=== PATIENT | female | born 1945 | race Caucasian/White ===

== ENCOUNTER 2023-01-23 05:37 | Inpatient (IN) | payer MEDICARE, BC ==
[2023-01-23 06:05] LABS: #Basophils 0.1 thou/uL (0.0-0.2); #Eosinphils 0.2 thou/uL (0.0-0.7); #Monocytes 0.6 thou/uL (0.11-0.59); #Neutrophils 3.7 thou/uL (1.40-6.50); %Eosinophils 3.1 % (0.0-10.0); %Lymphocytes 25.9 % (21.0-51.0); %Monocytes 9.9 % (0.0-10.0); %Neutrophils 59.5 % (42.0-75.0); Hematocrit 45.4 % (36.0-47.0); Hemoglobin 15.2 g/dL (12.0-16.0); Mean Corpuscular HGB CONC 33.5 g/dL (32.0-36.0); Mean Corpuscular Hemoglobin 29.3 pg (27.0-31.0); Mean Corpuscular Volume 87.5 fl (78.0-98.0); Mean Platelet Volume 10.9 fL (7.4-10.4); Platelet Count 199 10x3/uL (130-400); RBC Distribution Width 13.2 % (11.5-14.5); Red Blood Cell (RBC) Count 5.19 mill/uL (4.20-5.40); White Blood Cell (WBC) Count 6.2 10x3/uL (4.8-10.8)
[2023-01-23] MEDS ORDERED: dilTIAZem 25 MG/5 ML VIAL ONE (06:12)
[2023-01-23] MEDS ORDERED: Acetaminophen 500 MG TAB ONE (06:12)
[2023-01-23 06:26] LABS: PTT 30.9 sec (22.9-36.1); Prothrombin Time 13.8 sec (12.0-14.7)
[2023-01-23 06:32] LABS: ALT (SGPT) 18 U/L (8-55); AST (SGOT) 14 U/L (5-34); Albumin 4.3 g/dL (3.4-4.8); Alkaline Phosphatase 97 U/L (40-110); Anion Gap 17 mmol/L (10-20); BUN (Urea Nitrogen) 16 mg/dL (9.8-20.1); Bilirubin, Total 0.6 mg/dL (0.2-1.2); Calc. Creatinine Clearance 0 mL/min (70-130); Calcium 9.7 mg/dL (7.8-10.44); Carbon Dioxide 24 mmol/L (23-31); Chloride 105 mmol/L (98-107); Estimated GFR 61; Globulin 2.9 g/dL (2.4-3.5); Glucose 238 mg/dL (83-110); Lipase 22 U/L (8-78); Magnesium 1.6 mg/dL (1.6-2.6); Potassium 3.4 mmol/L (3.5-5.1); Protein, Total 7.2 g/dL (5.8-8.1); Sodium 143 mmol/L (136-145)
[2023-01-23 06:35] LABS: Troponin I Less than 0.010 ng/mL (< 0.028)
[2023-01-23] MEDS ORDERED: Azithromycin 500 MG VIAL ONE (07:31)
[2023-01-23] MEDS ORDERED: cefTRIAXone (ROCEPHIN) 1 GM VIAL ONE (07:31)
[2023-01-23 07:44] LABS: Bilirubin Negative (Negative); Blood, Urine Negative (Negative); CAUTI Indications for Culture Alt mental st,lethar; Clarity Clear (Clear); Glucose, Urine (Dipstick) 50 mg/dL (Negative); Ketone, Urine Negative (Negative); Leukocyte Negative Leu/uL (Negative); Nitrite Negative (Negative); Protein, Urine (Dipstick) Negative (Neg-Trace); RBC/HPF 0-3 HPF (0-3); Squamous Epithelial 0-3 HPF (0-3); Urobilinogen Normal mg/dL (Less than 2); WBC/HPF 0-3 HPF (0-3); pH, Urine 6.5 (5.0-9.0)
[2023-01-23 07:45] LABS: Bacteria/HPF Rare-Few HPF (None Seen); Urine Culture Reflex No No
[2023-01-23] MEDS ORDERED: Glucagon 1 MG/ML KIT IM PRN (08:23)
[2023-01-23] MEDS ORDERED: Acetaminophen 325 MG TAB PO PRN (08:23)
[2023-01-23] MEDS ORDERED: Dextrose 5% in Water 1,000 ML IV PRN (08:23)
[2023-01-23] MEDS ORDERED: Dextrose 50% Abboject 50 ML SYRINGE SLOW IVP PRN (08:23)
[2023-01-23] MEDS ORDERED: Ondansetron ODT 4 MG TAB PO PRN (08:23)
[2023-01-23] MEDS ORDERED: Insulin Regular 300 UNITS/3 ML VIAL SC PRN (08:23)
[2023-01-23] MEDS ORDERED: Magnesium Sulfate 1 GM, Admixture Fee 1 EACH in Sodium Chloride 0.9% 100 ML IVPB SCH (09:00)
[2023-01-23] MEDS ORDERED: Potassium Chloride 20 MEQ TAB PO SCH (10:00)
[2023-01-23 10:31] LABS: Hemoglobin A1c 7.3 % (4.0-6.0)
[2023-01-23 11:40] VITALS: BMI 34.0
[2023-01-23] MEDS: Aspirin Chewable 81 MG TAB PO SCH (11:43)
[2023-01-23] MEDS: Doxazosin 2 MG TAB PO SCH (20:32)
[2023-01-23] MEDS: Metoprolol Tartrate 25 MG TAB PO SCH (20:32)
[2023-01-23] MEDS: Atorvastatin Calcium 40 MG TAB PO SCH (20:32)
[2023-01-23] MEDS ORDERED: Communication Order-Pharmacy FS SCH (20:45)
[2023-01-24] MEDS ORDERED: hydrALAZINE 25 MG TAB PO SCH (04:45)
[2023-01-24 05:13] LABS: Anion Gap 15 mmol/L (10-20); BUN (Urea Nitrogen) 14 mg/dL (9.8-20.1); Calc. Creatinine Clearance 93 mL/min (70-130); Calcium 8.9 mg/dL (7.8-10.44); Carbon Dioxide 23 mmol/L (23-31); Chloride 109 mmol/L (98-107); Estimated GFR 83; Glucose 146 mg/dL (83-110); Magnesium 1.7 mg/dL (1.6-2.6); Potassium 3.8 mmol/L (3.5-5.1); Sodium 143 mmol/L (136-145)
[2023-01-24] MEDS: Levothyroxine Sodium 88 MCG TAB PO SCH (05:23)
[2023-01-24] MEDS ORDERED: Midazolam HCl 2 mg/2 ml Vial ONE (06:07)
[2023-01-24] MEDS ORDERED: fentaNYL 50 mcg/mL 1 mL Vial ONE (06:07)
[2023-01-24] MEDS ORDERED: Heparin 10,000 UNITS/ 10 ML VIAL ONE ×2 (06:08→06:39)
[2023-01-24] MEDS ORDERED: Lidocaine 1% (PF) 30 ML VIAL ONE (06:08)
[2023-01-24] MEDS ORDERED: Atropine Sulfate 1 mg/10 ml Syringe ONE (06:50)
[2023-01-24] MEDS ORDERED: cefTRIAXone\\ROCEPHIN 1 GM in Sodium Chloride 0.9% 100 ML IVPB SCH (08:00)
[2023-01-24] MEDS: Losartan 25 MG TAB PO SCH (08:38)
[2023-01-24] MEDS: Amlodipine 10 MG TAB PO SCH (08:38)
[2023-01-24] MEDS: Aspirin Chewable 81 MG TAB PO SCH (08:38)
[2023-01-24] MEDS: Potassium Chloride 10 MEQ TAB PO SCH (08:38)
[2023-01-24] MEDS: Hydrochlorothiazide 25 MG TAB PO SCH (08:38)
[2023-01-24] MEDS: Metoprolol Tartrate 25 MG TAB PO SCH (08:38)
[2023-01-24] MEDS ORDERED: Azithromycin 500 MG in Sodium Chloride 0.9% 250 ML 250 ML IVPB SCH (09:00)
[2023-01-24] MEDS ORDERED: dilTIAZem CD 120 MG CAP PO SCH (09:00)
[2023-01-24] MEDS ORDERED: Metoprolol Tartrate 25 MG TAB PO SCH (09:10)
[2023-01-24] MEDS ORDERED: Iopamidol 370 76% 100 ML VIAL ONE (09:41)
[2023-01-24] MEDS: Metoprolol Tartrate 50 MG TAB PO SCH ×2 (10:37→20:24)
[2023-01-24] MEDS ORDERED: Insulin Regular 300 UNITS/3 ML VIAL SC PRN (11:00)
[2023-01-24] MEDS ORDERED: Sodium Chloride 0.9% 200 ML IV PRN (13:13)
[2023-01-24] MEDS ORDERED: Nitroglycerin 0.4 MG TAB (25 Tab Bottle) SL PRN (13:13)
[2023-01-24] MEDS ORDERED: Acetaminophen/Codeine 30-300mg Tablet PO PRN ×2 (13:13)
[2023-01-24] MEDS: Atorvastatin Calcium 40 MG TAB PO SCH (20:24)
[2023-01-24] MEDS: Doxazosin 2 MG TAB PO SCH (20:24)
[2023-01-25] MEDS: Levothyroxine Sodium 88 MCG TAB PO SCH (05:05)
[2023-01-25] MEDS: Potassium Chloride 10 MEQ TAB PO SCH (08:16)
[2023-01-25] MEDS: Amlodipine 10 MG TAB PO SCH (08:17)
[2023-01-25] MEDS: Metoprolol Tartrate 50 MG TAB PO SCH (08:17)
[2023-01-25] MEDS: Hydrochlorothiazide 25 MG TAB PO SCH (08:17)
[2023-01-25] MEDS: Losartan 25 MG TAB PO SCH (08:17)
[2023-01-25] MEDS: Aspirin Chewable 81 MG TAB PO SCH (08:17)
[2023-01-25] MEDS ORDERED: Insulin Regular 300 UNITS/3 ML VIAL SC PRN (10:21)
[2023-01-25] MEDS ORDERED: Metoprolol Tartrate 25 MG TAB PO SCH ×2 (10:30→21:00)
[2023-01-25 16:26] VITALS: BP 161/79; TEMP 98.1
[2023-01-25] MEDS ORDERED: Metoprolol Tartrate 50 MG TAB PO SCH (21:00)
== END 2023-01-25 18:28 | disposition short-term general hospital (02) | DRG 287 ==
LOC: ERS 05:37 → SUATTDRO 05:37 → 2NO 07:49
PROVIDERS: ADMIT Family Medicine; ATTEND Family Medicine
PROC: 4A023N8 Measurement of Cardiac Sampling and Pressure, Bilateral, Percutaneous Approach (ICD-10-PCS; principal; 2023-01-24)
PROC: B2111ZZ Fluoroscopy of Multiple Coronary Arteries using Low Osmolar Contrast (ICD-10-PCS; 2023-01-24)
PROC: B2161ZZ Fluoroscopy of Right and Left Heart using Low Osmolar Contrast (ICD-10-PCS; 2023-01-24)
PROC: B4101ZZ Fluoroscopy of Abdominal Aorta using Low Osmolar Contrast (ICD-10-PCS; 2023-01-24)
PROC: B41G1ZZ Fluoroscopy of Left Lower Extremity Arteries using Low Osmolar Contrast (ICD-10-PCS; 2023-01-24)
DX: I48.91 Unspecified atrial fibrillation (principal); E78.5 Hyperlipidemia, unspecified; I25.10 Atherosclerotic heart disease of native coronary artery without angina pectoris; I35.0 Nonrheumatic aortic (valve) stenosis; E78.6 Lipoprotein deficiency; E83.42 Hypomagnesemia; I72.8 Aneurysm of other specified arteries; E11.51 Type 2 diabetes mellitus with diabetic peripheral angiopathy without gangrene; I11.0 Hypertensive heart disease with heart failure; R91.1 Solitary pulmonary nodule; Z98.890 Other specified postprocedural states; Z90.710 Acquired absence of both cervix and uterus
CPT/HCPCS: 36245; 36415; 36416; 71045; 71250; 75736; 80048; 80053; 81001; 83036; 83690; 83735; 83880; 84145; 84443; 84484; 85025; 85610; 85730; 93005; 93306; 93458; 93459; 93880; 96361; 96365; 96367; 96372; 96375; C1769; J0456; J0461; J0696; J1644; J1650; J2001; J2250; J3010; J3475; J3490; Q9967

== ENCOUNTER 2023-04-12 16:41 | Outpatient (CLI) | payer MEDICARE, BC | END 2023-04-12 16:42 | disposition home or self-care (01) | LOC: RAD 16:41 | PROVIDERS: ATTEND Family Medicine | DX: R05.9 Cough, unspecified (principal); I87.8 Other specified disorders of veins | CPT/HCPCS: 71046 ==

== ENCOUNTER 2023-05-24 21:25 | Inpatient (IN) | payer MEDICARE, BC ==
[2023-05-24 22:32] LABS: #Basophils 0.1 thou/uL (0.0-0.2); #Eosinphils 0.4 thou/uL (0.0-0.7); #Monocytes 0.5 thou/uL (0.11-0.59); #Neutrophils 4.5 thou/uL (1.40-6.50); %Basophils 0.9 % (0.0-1.0); %Eosinophils 5.3 % (0.0-10.0); %Lymphocytes 19.4 % (21.0-51.0); %Monocytes 7.8 % (0.0-10.0); Hematocrit 39.1 % (36.0-47.0); Hemoglobin 11.9 g/dL (12.0-16.0); Mean Corpuscular HGB CONC 30.4 g/dL (32.0-36.0); Mean Corpuscular Volume 85.4 fl (78.0-98.0); Mean Platelet Volume 9.7 fL (7.4-10.4); Platelet Count 238 10x3/uL (130-400); RBC Distribution Width 15.4 % (11.5-14.5); Red Blood Cell (RBC) Count 4.58 mill/uL (4.20-5.40); White Blood Cell (WBC) Count 6.8 10x3/uL (4.8-10.8)
[2023-05-24 22:57] LABS: Troponin I Less than 0.010 ng/mL (< 0.028)
[2023-05-24 23:00] LABS: ALT (SGPT) 12 U/L (8-55); AST (SGOT) 14 U/L (5-34); Albumin 3.7 g/dL (3.4-4.8); Alkaline Phosphatase 125 U/L (40-110); Anion Gap 15 mmol/L (10-20); BUN (Urea Nitrogen) 14 mg/dL (9.8-20.1); Bilirubin, Total 0.6 mg/dL (0.2-1.2); Calc. Creatinine Clearance 0 mL/min (70-130); Calcium 9.6 mg/dL (7.8-10.44); Carbon Dioxide 23 mmol/L (23-31); Chloride 106 mmol/L (98-107); Estimated GFR 71; Globulin 3.4 g/dL (2.4-3.5); Glucose 156 mg/dL (83-110); Lipase 24 U/L (8-78); Potassium 3.9 mmol/L (3.5-5.1); Protein, Total 7.1 g/dL (5.8-8.1); Sodium 140 mmol/L (136-145)
[2023-05-25] MEDS ORDERED: hydrALAZINE 20 MG/ML VIAL ONE (01:03)
[2023-05-25] MEDS ORDERED: Ondansetron ODT 4 MG TAB PO PRN (02:10)
[2023-05-25] MEDS ORDERED: Acetaminophen 650 MG Suppository PR PRN (02:10)
[2023-05-25] MEDS ORDERED: Acetaminophen 325 MG TAB PO PRN (02:10)
[2023-05-25] MEDS ORDERED: Ondansetron PF 4 MG/2 ML Vial IVP PRN (02:10)
[2023-05-25] MEDS ORDERED: Dextrose 5% in Water 1,000 ML IV PRN (02:46)
[2023-05-25] MEDS ORDERED: Dextrose 50% Abboject 50 ML SYRINGE SLOW IVP PRN (02:46)
[2023-05-25] MEDS ORDERED: Glucagon 1 MG/ML KIT IM PRN (02:46)
[2023-05-25] MEDS ORDERED: HumaLOG 300 UNITS/3 ML VIAL SC PRN ×2 (02:46)
[2023-05-25] MEDS ORDERED: Nitroglycerin 0.4 MG TAB (25 Tab Bottle) SL PRN (06:47)
[2023-05-25 07:26] LABS: Anion Gap 12 mmol/L (10-20); BUN (Urea Nitrogen) 14 mg/dL (9.8-20.1); Calc. Creatinine Clearance 0 mL/min (70-130); Calcium 9.3 mg/dL (7.8-10.44); Carbon Dioxide 24 mmol/L (23-31); Chloride 106 mmol/L (98-107); Estimated GFR 76; Glucose 134 mg/dL (83-110); Sodium 138 mmol/L (136-145)
[2023-05-25 07:34] LABS: #Eosinphils 0.3 thou/uL (0.0-0.7); #Monocytes 0.6 thou/uL (0.11-0.59); #Neutrophils 4.4 thou/uL (1.40-6.50); %Basophils 0.6 % (0.0-1.0); %Eosinophils 4.2 % (0.0-10.0); %Lymphocytes 21.5 % (21.0-51.0); %Monocytes 9.1 % (0.0-10.0); %Neutrophils 64.3 % (42.0-75.0); Hematocrit 38.4 % (36.0-47.0); Hemoglobin 11.5 g/dL (12.0-16.0); Mean Corpuscular HGB CONC 29.9 g/dL (32.0-36.0); Mean Corpuscular Hemoglobin 26.2 pg (27.0-31.0); Mean Corpuscular Volume 87.5 fl (78.0-98.0); Mean Platelet Volume 10.2 fL (7.4-10.4); Platelet Count 249 10x3/uL (130-400); RBC Distribution Width 15.6 % (11.5-14.5); Red Blood Cell (RBC) Count 4.39 mill/uL (4.20-5.40); White Blood Cell (WBC) Count 6.8 10x3/uL (4.8-10.8)
[2023-05-25] MEDS ORDERED: Aspirin 81 mg Enteric Coated Tablet ONE (09:52)
[2023-05-25] MEDS ORDERED: Metoprolol Tartrate 50 MG TAB ONE (09:53)
[2023-05-25] MEDS ORDERED: Losartan 25 MG TAB ONE (09:53)
[2023-05-25] MEDS: Losartan 25 MG TAB PO SCH (10:00)
[2023-05-25] MEDS: Aspirin 81 mg Enteric Coated Tablet PO SCH (10:04)
[2023-05-25] MEDS: Metoprolol Tartrate 50 MG TAB PO SCH (10:05)
[2023-05-25] MEDS: hydrALAZINE 20 MG/ML VIAL SLOW IVP PRN (14:29)
[2023-05-25 14:47] VITALS: BMI 31.0
[2023-05-25] MEDS: Ipratropium/Albuterol 3 ML NEB NEB PRN (18:44)
[2023-05-25] MEDS: Amlodipine 10 MG TAB PO SCH (20:11)
[2023-05-25] MEDS: Atorvastatin Calcium 40 MG TAB PO SCH (20:12)
[2023-05-25] MEDS: Apixaban 5 MG TAB PO SCH (20:12)
[2023-05-25] MEDS: Montelukast Sodium 10 mg Tablet PO SCH (20:12)
[2023-05-26 05:15] LABS: Anion Gap 9 mmol/L (10-20); BUN (Urea Nitrogen) 14 mg/dL (9.8-20.1); Calc. Creatinine Clearance 76 mL/min (70-130); Calcium 9.2 mg/dL (7.8-10.44); Carbon Dioxide 27 mmol/L (23-31); Chloride 108 mmol/L (98-107); Estimated GFR 73; Glucose 151 mg/dL (83-110); Magnesium 1.9 mg/dL (1.6-2.6); Potassium 3.9 mmol/L (3.5-5.1); Sodium 140 mmol/L (136-145)
[2023-05-26] MEDS: Levothyroxine Sodium 100 MCG TAB PO SCH (05:44)
[2023-05-26] MEDS ORDERED: Levothyroxine Sodium 88 MCG TAB PO SCH (06:00)
[2023-05-26] MEDS: Amiodarone 200 MG TAB PO SCH (08:10)
[2023-05-26] MEDS ORDERED: hydrALAZINE 25 MG TAB PO PRN (11:43)
[2023-05-26 12:04] VITALS: BP 159/70; TEMP 98.2
[2023-05-26] MEDS ORDERED: Carvedilol 6.25 MG TAB PO SCH (17:00)
[2023-05-26] MEDS ORDERED: Apixaban 2.5 MG TAB PO SCH (21:00)
== END 2023-05-26 13:50 | disposition home or self-care (01) | DRG 305 ==
LOC: ERS 21:25 → ERHOLD 05-25 00:40 → 2NO 05-25 14:06
PROVIDERS: ADMIT Student in an Organized Health Care Education/Training Program; ATTEND Internal Medicine
DX: I16.0 Hypertensive urgency (principal); I48.91 Unspecified atrial fibrillation; E11.51 Type 2 diabetes mellitus with diabetic peripheral angiopathy without gangrene; E03.9 Hypothyroidism, unspecified; I25.10 Atherosclerotic heart disease of native coronary artery without angina pectoris; E66.9 Obesity, unspecified; N18.2 Chronic kidney disease, stage 2 (mild); Z68.31 Body mass index [BMI] 31.0-31.9, adult; I12.9 Hypertensive chronic kidney disease with stage 1 through stage 4 chronic kidney disease, or unspecified chronic kidney disease; E11.22 Type 2 diabetes mellitus with diabetic chronic kidney disease; Z98.890 Other specified postprocedural states; Z79.01 Long term (current) use of anticoagulants; Z79.890 Hormone replacement therapy; Z95.1 Presence of aortocoronary bypass graft; Z79.82 Long term (current) use of aspirin; Z79.899 Other long term (current) drug therapy
CPT/HCPCS: 36415; 36416; 70450; 71045; 80048; 80053; 83690; 83735; 83880; 84484; 85025; 93005; 93798; 94640; J0360; J7620